=== PATIENT | female | born 1970 | race Caucasian/White ===

== ENCOUNTER 2021-05-13 11:28 | Emergency (ER) | payer BC, OTHER ==
[~2021-05-13] VITALS: Ht 167.6 cm; Wt 103.0 kg
[2021-05-13 12:18] LABS: CALCIUM 9.6 mg/dL (8.5-10.1); CREATININE 0.8 mg/dL (0.6-1.0)
[2021-05-13 12:25] LABS: BASOPHILS 0.4 % (0.0-2.0); HEMATOCRIT 42.6 % (37.0-47.0); HEMOGLOBIN 14.3 gm/dL (12.0-15.0); LYMPHOCYTES 38.5 % (24.0-44.0); MCH 29.3 pg (26.0-34.0); MCHC 33.4 g/dL (28.0-37.0); MCV 87.7 fL (80.0-100.0); MONOCYTES 7.9 % (1.0-8.0); PLATELET COUNT 372 thou/uL (150-400); POLYS 52.2 % (36.0-66.0); RBC 4.86 mil/uL (4.20-5.00); RDW 15.4 % (10.5-14.5); WBC 9.5 thou/uL (4.0-11.0)
[2021-05-13 12:33] LABS: ALBUMIN 4.4 g/dL (3.4-5.0); TOTAL BILIRUBIN 0.8 mg/dL (0.2-1.0); TOTAL PROTEIN 8.6 g/dL (6.4-8.2)
[2021-05-13 13:06] LABS: URINE BILIRUBIN NEGATIVE (Negative); URINE BLOOD NEGATIVE (Negative); URINE CLARITY CLEAR; URINE COLOR YELLOW; URINE GLUCOSE-RANDOM* NEGATIVE (Negative); URINE KETONES NEGATIVE (Negative); URINE LEUKOCYTES-REFLEX NEGATIVE (Negative); URINE NITRITE-REFLEX NEGATIVE (Negative); URINE PROTEIN (DIPSTICK) NEGATIVE (Negative); URINE SPECIFIC GRAVITY 1.015 (1.005-1.035); URINE UROBILINOGEN 0.2 E.U./dl (0.2-1.0)
[2021-05-13] MEDS ORDERED: BENTYL 10 MG CA10 MG PO (13:50)
[2021-05-13 13:56] VITALS: BP 142/82
--- NOTE | 2021-05-13 16:11 | EKG ---
[place] [address] [employer] [facility] [place] [address] ELECTROCARDIOGRAM REPORT Name: ДМИТРИЙ WILSONNNE Room #: [facility] Corie#: [id number] Admission: 05/13/21 Attend Phys: Discharge: 05/13/21 Date of : 74 Report #: [id number] [facility] ED Test Date: 2021-05-13 Test Time: 11:37:00 Pat Name: ASHLEY WILSON Department: Room: Gender: [employer] C[employer]: NEIDA : 1970 Requested By: Julissa Jauregui Order Number: [id number] MD: Adam Rogers Measurements Intervals [place] Rate: 78 P: 31 ME: 157 QRS: 6 QRSD: 92 T: 16 QT: 422 QTc: 481 Interpretive Statements Sinus rhythm Nonspecific T wave abnormality No previous ECG available for comparison Electronically Signed On 05-13-2021 16:11:26 REGISTERED NURSE by Adam Rogers [email or web address] <ELECTRONICALLY SIGNED> By: Adam Rogers MD, [facility] 05/13/21 1611 1137 1137 Adam Rogers MD, FACC /EPI
== END 2021-05-13 13:57 | disposition home or self-care (01) ==
LOC: ER 11:28
PROVIDERS: Nurse Practitioner Family
DX: R10.10 Upper abdominal pain, unspecified (principal); Z20.822 Contact with and (suspected) exposure to COVID-19; I10 Essential (primary) hypertension; Z88.6 Allergy status to analgesic agent; Z88.8 Allergy status to other drugs, medicaments and biological substances